=== PATIENT | female | born 1985 | race Caucasian/White ===

== ENCOUNTER 2020-05-08 07:03 | Inpatient (IN) | payer MEDICAID ==
[2020-05-08] MEDS ORDERED: RINGERS SOLUTION,LACTATED 1,000 ML IV ONE (07:36)
[2020-05-08] MEDS ORDERED: MISOPROSTOL 0.2 MG TABLET PV ONE (07:58)
[2020-05-08 08:24] LABS: ABSOLUTE EOSINOPHILS # (AUTO) 0.1 10^3/uL (0.0-0.6); ABSOLUTE LYMPHOCYTES (AUTO) 1.6 10^3/uL (0.5-4.7); ABSOLUTE MONOCYTES (AUTO) 0.4 10^3/uL (0.1-1.4); ABSOLUTE NEUT (AUTO) 3.8 10^3/uL (1.7-8.2); BASOPHILS % (AUTO) 0.6 % (0-2); EOSINOPHILS % (AUTO) 1.1 % (0-6); HEMATOCRIT 34.9 % (36.0-47.0); HEMOGLOBIN 12.5 g/dL (12.0-15.5); LYMPHOCYTES % (AUTO) 27.3 % (13-45); MEAN CORPUSCULAR VOLUME 92 fl (80-97); MONOCYTES % (AUTO) 7.1 % (3-13); PLATELET COUNT 179 10^3/uL (150-450); RED BLOOD COUNT 3.81 10^6/uL (3.72-5.28); SEGMENTED NEUTROPHILS % (AUTO) 63.9 % (42-78); TOTAL CELLS COUNTED % (AUTO) 100 %
[2020-05-08] MEDS: RINGERS SOLUTION,LACTATED 1,000 ML IV PRN ×2 (08:35→19:30)
[2020-05-08] MEDS ORDERED: MISOPROSTOL 0.2 MG TABLET ONE ×3 (08:51→19:49)
[2020-05-08 09:12] LABS: APPEARANCE,URINE SLIGHTLY-CLOUDY; BILIRUBIN,URINE NEGATIVE (NEGATIVE); GLUCOSE, URINE NEGATIVE (NEGATIVE); KETONES,URINE NEGATIVE (NEGATIVE); LEUKOCYTE ESTERASE,URINE NEGATIVE (NEGATIVE); NITRITE,URINE POSITIVE (NEGATIVE); PROTEIN,URINE NEGATIVE (NEGATIVE); URINE SPECIFIC GRAVITY 1.027; UROBILINOGEN,URINE NEGATIVE mg/dL (<2.0)
[2020-05-08 09:13] LABS: COLOR,URINE YELLOW
[2020-05-08 09:27] LABS: URINE AMPHETAMINES SCREEN NEGATIVE; URINE BARBITURATES SCREEN NEGATIVE; URINE BENZODIAZEPINES SCREEN NEGATIVE; URINE COCAINE SCREEN NEGATIVE; URINE MARIJUANA (THC) SCREEN NEGATIVE; URINE METHADONE SCREEN NEGATIVE; URINE PHENCYCLIDINE SCREEN NEGATIVE
[2020-05-08] MEDS ORDERED: CEFTRIAXONE INJ 1000 MG VIAL ONE (10:57)
[2020-05-08] MEDS ORDERED: OXYTOCIN/0.9 % SODIUM CHLORIDE 30 UNIT/500 ML RTUINJ ONE (10:57)
[2020-05-08] MEDS ORDERED: CEFTRIAXONE 1 GM/D5W RTU 1 GM/50 ML RTUPB IV ONE (11:00)
[2020-05-08] MEDS ORDERED: MISOPROSTOL 0.2 MG TABLET PO SCH (13:45)
[2020-05-08] MEDS ORDERED: PROMETHAZINE HCL INJ 25 MG/1 ML VIAL ONE (15:13)
[2020-05-08] MEDS ORDERED: NALBUPHINE HCL INJ 10 MG/1 ML AMPULE ONE ×2 (15:13→19:18)
[2020-05-08] MEDS ORDERED: PROMETHAZINE HCL INJ 25 MG/1 ML VIAL IV ONE ×2 (15:14→19:15)
[2020-05-08] MEDS ORDERED: NALBUPHINE HCL INJ 10 MG/1 ML AMPULE INJ ONE ×2 (15:14→19:15)
[2020-05-08] MEDS: MISOPROSTOL 0.2 MG TABLET PO SCH (19:53)
[2020-05-08] MEDS ORDERED: FAMOTIDINE 20 MG TABLET PO SCH (22:00)
[2020-05-08] MEDS ORDERED: MAGNESIUM HYDROXIDE SUSP 30 ML UDCUP PO PRN (22:03)
[2020-05-08] MEDS ORDERED: PROMETHAZINE HCL 25 MG SUPP.RECT PR PRN (22:03)
[2020-05-08] MEDS ORDERED: MEASLES,MUMPS&RUBELLA VACC/PF 0.5 ML VIAL SUBCUT PRN (22:03)
[2020-05-08] MEDS ORDERED: DIPHENHYDRAMINE HCL 25 MG CAPSULE PO PRN (22:03)
[2020-05-08] MEDS ORDERED: ACETAMINOPHEN WITH CODEINE #3 TABLET PO PRN (22:03)
[2020-05-08] MEDS ORDERED: PROMETHAZINE HCL 25 MG TABLET PO PRN (22:03)
[2020-05-08] MEDS ORDERED: DIPH/PERTUSS(ACELL)/TETANUS VAC/PF 0.5 ML SYR (>=10YO) IM PRN (22:03)
[2020-05-08] MEDS ORDERED: GLYCERIN/WITCH HAZEL LEAF 1 EACH MED..WIPE TP PRN (22:03)
[2020-05-08] MEDS ORDERED: ACETAMINOPHEN 650 MG SUPP.RECT PR PRN (22:03)
[2020-05-08] MEDS ORDERED: DIBUCAINE 1% OINTMENT 28 GM TP PRN (22:03)
[2020-05-08] MEDS ORDERED: PROMETHAZINE HCL INJ 25 MG/1 ML VIAL IV PRN (22:03)
[2020-05-08] MEDS ORDERED: PSEUDOEPHEDRINE HCL 30 MG TABLET PO PRN (22:03)
[2020-05-08] MEDS ORDERED: ZOLPIDEM TARTRATE 5 MG TABLET PO PRN (22:03)
[2020-05-08] MEDS ORDERED: OXYTOCIN/0.9 % SODIUM CHLORIDE 30 UNIT/500 ML RTUINJ IV PRN (22:03)
[2020-05-08] MEDS ORDERED: NA PHOS,M-B/NA PHOS,DI-BA (ADULT) 133 ML ENEMA PR PRN (22:03)
[2020-05-08] MEDS ORDERED: BENZOCAINE/MENTHOL AEROSOL SPRAY 56 ML TOP PRN (22:03)
[2020-05-09] MEDS ORDERED: IBUPROFEN 800 MG TABLET ONE (05:55)
[2020-05-09] MEDS ORDERED: IBUPROFEN 800 MG TABLET PO SCH (06:00)
[2020-05-09 07:43] LABS: HEMATOCRIT 30.1 % (36.0-47.0); MEAN CORPUSCULAR HEMOGLOBIN 33.4 pg (27.0-33.4); MEAN CORPUSCULAR HGB CONC 36.4 g/dL (32.0-36.0); MEAN CORPUSCULAR VOLUME 92 fl (80-97); PLATELET COUNT 161 10^3/uL (150-450); RED BLOOD COUNT 3.28 10^6/uL (3.72-5.28); RED CELL DISTRIBUTION WIDTH 13.7 % (11.5-14.0); WHITE BLOOD COUNT 9.2 10^3/uL (4.0-10.5)
[2020-05-09] MEDS: MISOPROSTOL 0.2 MG TABLET PO SCH (07:53)
--- NOTE | 2020-05-09 08:38 | PDOC DISCHARGE SUMMARY ---
Impression - Admit/DC Date/PCP Admission Date/Primary Care Provider: 05/08/20 07:03 ARMAAN AGUILAR MD Discharge Date: 05/09/20 - Discharge Diagnosis (1) demise before 20 weeks with retention of fetus Is this a current diagnosis for this admission?: Yes - Assessment Summary: The pt has a demise prior to 20 weeks and was induced to deliver the fetus . She was induced with cytotec and delivered the baby and placenta last night. Now she is doing well physically today. She has an appointment with a therapist Tuesday. She states that she is ready to go at this time. - Additional Information Resuscitation Status: Full Code Discharge Diet: As Tolerated Discharge Activity: Pelvic Rest Referrals: ARMAAN AGUILAR MD [Primary Care Provider] - Home Medications: No Home Medications 05/08/20 Additional Information: She will followup next week. History of Present Illiness History of Present Illness: JONEL NATION is a 34 year old female Physical Exam - Physical Exam Vital Signs: Intake & Output 05/08/20 05/09/20 05/10/20 06:59 06:59 06:59 Intake Total 1000 Balance 1000 Weight 58.9 kg Results Laboratory Results: WBC 9.2 10^3/uL (4.0-10.5) 05/09/20 07:15 RBC 3.28 10^6/uL (3.72-5.28) L 05/09/20 07:15 Hgb 11.0 g/dL (12.0-15.5) L 05/09/20 07:15 Hct 30.1 % (36.0-47.0) L 05/09/20 07:15 MCV 92 fl (80-97) 05/09/20 07:15 MCH 33.4 pg (27.0-33.4) 05/09/20 07:15 MCHC 36.4 g/dL (32.0-36.0) H 05/09/20 07:15 RDW 13.7 % (11.5-14.0) 05/09/20 07:15 Plt Count 161 10^3/uL (150-450) 05/09/20 07:15 Lymph % (Auto) 27.3 % (13-45) 05/08/20 07:30 [place] % (Auto) 7.1 % (3-13) 05/08/20 07:30 Eos % (Auto) 1.1 % (0-6) 05/08/20 07:30 Baso % (Auto) 0.6 % (0-2) 05/08/20 07:30 Absolute Neuts (auto) 3.8 10^3/uL (1.7-8.2) 05/08/20 07:30 Absolute Lymphs (auto) 1.6 10^3/uL (0.5-4.7) 05/08/20 07:30 Absolute Monos (auto) 0.4 10^3/uL (0.1-1.4) 05/08/20 07:30 Absolute Eos (auto) 0.1 10^3/uL (0.0-0.6) 05/08/20 07:30 Absolute Basos (auto) 0.0 10^3/uL (0.0-0.2) 05/08/20 07:30 Seg Neutrophils % 63.9 % (42-78) 05/08/20 07:30 Urine Color YELLOW 05/08/20 08:50 Urine Appearance SLIGHTLY-CLOUDY 05/08/20 08:50 Urine pH 5.0 (5.0-9.0) 05/08/20 08:50 Ur Specific [place] 1.027 05/08/20 08:50 Urine Protein NEGATIVE mg/dL (NEGATIVE) 05/08/20 08:50 Urine Glucose (UA) NEGATIVE mg/dL (NEGATIVE) 05/08/20 08:50 Urine Ketones NEGATIVE mg/dL (NEGATIVE) 05/08/20 08:50 Urine Blood NEGATIVE (NEGATIVE) 05/08/20 08:50 Urine Nitrite POSITIVE (NEGATIVE) H 05/08/20 08:50 Urine Bilirubin NEGATIVE (NEGATIVE) 05/08/20 08:50 Urine Urobilinogen NEGATIVE mg/dL (<2.0) 05/08/20 08:50 Ur Leukocyte Esterase NEGATIVE (NEGATIVE) 05/08/20 08:50 Urine WBC (Auto) 6 /HPF 05/08/20 08:50 Urine RBC (Auto) 2 /HPF 05/08/20 08:50 Urine Bacteria (Auto) 2+ /HPF 05/08/20 08:50 Squamous Epi Cells Auto 5 /HPF 05/08/20 08:50 Urine Mucus (Auto) MANY /LPF 05/08/20 08:50 Urine Ascorbic Acid NEGATIVE (NEGATIVE) 05/08/20 08:50 Urine Opiates Screen NEGATIVE 05/08/20 08:50 Urine Methadone Screen NEGATIVE 05/08/20 08:50 Ur Barbiturates Screen NEGATIVE 05/08/20 08:50 Ur Phencyclidine Scrn NEGATIVE 05/08/20 08:50 Ur Amphetamines Screen NEGATIVE 05/08/20 08:50 U Benzodiazepines Scrn NEGATIVE 05/08/20 08:50 Urine Cocaine Screen NEGATIVE 05/08/20 08:50 U Marijuana (THC) Screen NEGATIVE 05/08/20 08:50 RPR NONREACTIVE (NONREACTIVE) 05/08/20 07:30 Rubella IgG Antibody 53.40 IU/mL 05/08/20 07:40 Rubella IgG Ab Interp POSITIVE 05/08/20 07:40 Blood Type A POSITIVE 05/08/20 07:30 Antibody Screen NEGATIVE 05/08/20 07:30 Stroke Is this a Stroke Patient?: No Acute Heart Failure - Is this a Heart Failure Patient?: No
[2020-05-09 08:50] LABS: HSV-I IGG AB 1.44 index (0.00-0.90); TOXOPLASMA GONDII IGG AB <3.0 IU/mL (0.0-7.1); TOXOPLASMA GONDII IGM AB <3.0 AU/mL (0.0-7.9)
[2020-05-09 08:51] LABS: CYTOMEGALOVIRUS IGG AB <0.60 U/mL (0.00-0.59); CYTOMEGALOVIRUS IGM AB <30.0 AU/mL (0.0-29.9)
[2020-05-09] MEDS ORDERED: SENNOSIDES/DOCUSATE 8.6-50 MG 1 EACH TABLET PO SCH (10:00)
[2020-05-09] MEDS ORDERED: DOCUSATE SODIUM 100 MG CAPSULE PO SCH (10:00)
[2020-05-09] MEDS ORDERED: PRENATAL VITAMIN W DHA CAPSULE PO SCH (10:00)
[2020-05-09] MEDS ORDERED: FERROUS SULFATE 325 MG TABLET PO SCH (10:00)
[2020-05-12 07:03] LABS: ANTICARDIOLIPIN IGA AB <9 APL U/mL (0-11); ANTICARDIOLIPIN IGG AB <9 GPL U/mL (0-14); ANTICARDIOLIPIN IGM AB <9 MPL U/mL (0-12)
== END 2020-05-09 09:01 | disposition home or self-care (01) | DRG 779 ==
LOC: LR 07:03
PROVIDERS: ADMIT Obstetrics & Gynecology Gynecology; ATTEND Obstetrics & Gynecology Gynecology
PROC: 3E0P7VZ Introduction of Hormone into Female Reproductive, Via Natural or Artificial Opening (ICD-10-PCS; principal; 2020-05-08)
DX: O02.1 Missed abortion (principal); Z91.040 Latex allergy status; Z88.6 Allergy status to analgesic agent
CPT/HCPCS: 36415; 80307; 81001; 85025; 85027; 86147; 86592; 86644; 86695; 86696; 86762; 86777; 86778; 86850; 86900; 86901; 88307; J0696; J2300; J2550; J2590

== ENCOUNTER 2020-08-14 09:20 | Emergency (ER) | payer MEDICAID ==
[2020-08-14] MEDS ORDERED: ONDANSETRON 4 MG TAB.RAPDIS PO ONE (09:51)
--- NOTE | 2020-08-14 09:52 | ER Document Report ---
ED GI/ - General Chief Complaint: Nausea/Vomiting Stated Complaint: NAUSEA,VOMITING Time Seen by Provider: 08/14/20 09:44 Notes: CHIEF COMPLAINT: Nausea vomiting HPI: 34-year-old female presenting with nausea vomiting. Became nauseated last night threw up 2 times, has had dry heaving this morning. No abdominal pain. No diarrhea. No fever. Patient states that she is not concerned about COVID. She would like a test although she states she took 1 at home this morning and it was negative ROS: See HPI - all other systems were reviewed and are otherwise negative Constitutional: no fever Eyes: no drainage, no blurred vision ENT: no runny nose, no sore throat Cardiovascular: no chest pain Resp: no SOB, no cough GI: + vomiting, no diarrhea, no abdominal pain : no dysuria Integumentary: no rash Allergy: no hives Musculoskeletal: no extremity pain or swelling Neurological: no numbness/tingling, no weakness MEDICATIONS: I agree with the patient medications as charted by the RN. ALLERGIES: I agree with the allergies as charted by the RN. PAST MEDICAL HISTORY/PAST SURGICAL HISTORY: Reviewed and agree as charted by RN. SOCIAL HISTORY: Reviewed and agree as charted by RN. FAMILY HISTORY: No significant familial comorbid conditions directly related to patient complaint EXAM: Reviewed vital signs as charted by RN. CONSTITUTIONAL: Alert and oriented and responds appropriately to questions. Well-appearing; well-nourished HEAD: Normocephalic; atraumatic EYES: PERRL; Conjunctivae clear, sclerae non-icteric ENT: normal nose; no rhinorrhea; moist mucous membranes; pharynx without lesions noted, no uvula edema or deviation, no tonsillar hypertrophy, phonation normal NECK: Supple without meningismus; non-tender; no cervical lymphadenopathy, no masses CARD: RRR; no murmurs, no clicks, no rubs, no gallops; symmetric distal pulses RESP: Normal chest excursion without splinting or tachypnea; breath sounds clear and equal bilaterally; no wheezes, no rhonchi, no rales, pulse oximetry 98% on room air not hypoxic ABD/GI: Normal bowel sounds; non-distended; soft, non-tender, no rebound, no guarding; no palpable organomegaly or masses. BACK: The back appears normal and is non-tender to palpation, there is no CVA tenderness EXT: Normal ROM in all joints; non-tender to palpation; no cyanosis, no effusions, no edema SKIN: Normal color for age and race; warm; dry; good turgor; no acute lesions noted NEURO: Moves all extremities equally; Motor and sensory function intact PSYCH: The patient's mood and manner are appropriate. Grooming and personal hygiene are appropriate. MDM: 34-year-old female with nausea vomiting complaint. Does not want [place] test, states she is normally at home and does not believe she was exposed to anyone. Has no abdominal pain on exam. Will treat nausea, obtain urine urine test. - Related Data Allergies/Adverse Reactions: latex Allergy (Verified 05/08/20 07:15) morphine Allergy (Verified 05/08/20 07:15) Past Medical History - Social History Smoking Status: Never Smoker Frequency of alcohol use: None Drug Abuse: None Family History: Reviewed & Not Pertinent Physical Exam - Vital signs Vitals: Temp Pulse Resp BP Pulse Ox 98.6 F 94 16 113/68 100 08/14/20 09:27 08/14/20 09:27 08/14/20 09:27 08/14/20 09:27 08/14/20 09:27 Course - Re-evaluation Re-evalutation: 08/14/20 11:30 Tolerating oral fluids, urine does not show evidence of infection. She has declined COVID testing. Will discharge on Zofran follow-up PCP - Vital Signs Vital signs: Temp Pulse Resp BP Pulse Ox 98.6 F 94 16 113/68 100 08/14/20 09:33 08/14/20 09:27 08/14/20 09:27 08/14/20 09:27 08/14/20 09:27 Discharge - Discharge Clinical Impression: Vomiting Qualifiers: Vomiting type: unspecified Vomiting Intractability: non-intractable Nausea presence: with nausea Qualified Code(s): R11.2 - Nausea with vomiting, unspecified Condition: Stable Disposition: HOME, SELF-CARE Additional Instructions: Take Zofran for any recurrent nausea or vomiting hydrate well at home. Urinalysis did not show evidence of infection. Not today. Return for any onset of high fever or abdominal pain. Follow-up with your primary care provider for reevaluation call for appointment Prescriptions: Ondansetron [Zofran Odt 4 mg Tablet] 1 - 2 tab PO Q4H PRN #15 tab.rapdis PRN Reason: For Nausea/Vomiting
[2020-08-14 10:18] LABS: APPEARANCE,URINE CLEAR; BILIRUBIN,URINE NEGATIVE (NEGATIVE); COLOR,URINE YELLOW; GLUCOSE, URINE NEGATIVE (NEGATIVE); KETONES,URINE NEGATIVE (NEGATIVE); LEUKOCYTE ESTERASE,URINE NEGATIVE (NEGATIVE); NITRITE,URINE NEGATIVE (NEGATIVE); PROTEIN,URINE NEGATIVE (NEGATIVE); URINE SPECIFIC GRAVITY 1.015; UROBILINOGEN,URINE NEGATIVE mg/dL (<2.0)
[2020-08-14 12:33] VITALS: BP 118/74
== END 2020-08-14 12:32 | disposition home or self-care (01) ==
LOC: ER 09:20
DX: R11.2 Nausea with vomiting, unspecified (principal); Z91.040 Latex allergy status; Z32.02 Encounter for pregnancy test, result negative; Z88.6 Allergy status to analgesic agent; Z88.5 Allergy status to narcotic agent
CPT/HCPCS: 99283; 81025; 81001; S0119

== ENCOUNTER 2020-10-02 07:20 | Emergency (ER) | payer MEDICAID ==
[2020-10-02 08:14] LABS: APPEARANCE,URINE SLIGHTLY-CLOUDY; BILIRUBIN,URINE NEGATIVE (NEGATIVE); COLOR,URINE YELLOW; GLUCOSE, URINE NEGATIVE (NEGATIVE); KETONES,URINE NEGATIVE (NEGATIVE); LEUKOCYTE ESTERASE,URINE LARGE (NEGATIVE); NITRITE,URINE NEGATIVE (NEGATIVE); PROTEIN,URINE 100 mg/dL (NEGATIVE); URINE SPECIFIC GRAVITY 1.024; UROBILINOGEN,URINE NEGATIVE mg/dL (<2.0)
--- NOTE | 2020-10-02 08:37 | ER Document Report ---
ED General - General Chief Complaint: Pain With Urination Stated Complaint: URINARY PROBLEMS Time Seen by Provider: 10/02/20 08:10 Primary Care Provider: AMANDA HAQUE MD [ACTIVE STAFF] - Follow up in 1 week - [facility] Notes: 34-year-old female, G4, P2, stillborn 1, to the emergency department with complaints of burning with urination and pelvic cramping for the past 2 days. She states that she is approximately 6 weeks . She has not had an ultrasound with this . She denies any vaginal bleeding. She denies any fevers, chills, nausea, vomiting. She states that she is not had any flank pain. She denies any chest pain. She states that her last ended in a stillborn. This was in May 2020. She states that currently she is being evaluated at the health department but then will transfer care over to Dr. Haque at [facility]. - Related Data Allergies/Adverse Reactions: latex Allergy (Verified 10/02/20 07:27) morphine Allergy (Verified 10/02/20 07:) Past Medical History - General Information source: Patient - Social History Smoking Status: Never Smoker Chew tobacco use (# tins/day): No Frequency of alcohol use: None Drug Abuse: None Family History: Reviewed & Not Pertinent Review of Systems - Review of Systems Constitutional: denies: Chills, Fever EENT: No symptoms reported Cardiovascular: denies: Chest pain, Palpitations, Dizziness, Lightheaded Respiratory: denies: Cough, Short of breath Gastrointestinal: Abdominal pain. denies: Diarrhea, Nausea, Vomiting Genitourinary: Burning, Dysuria Musculoskeletal: No symptoms reported Skin: No symptoms reported Hematologic/Lymphatic: No symptoms reported Neurological/Psychological: No symptoms reported -: Yes All other systems reviewed and negative Physical Exam - Vital signs Vitals: Temp Pulse Resp BP Pulse Ox 98.1 F 88 16 104/56 L 100 10/02/20 07:25 10/02/20 07:25 10/02/20 07:25 10/02/20 07:25 10/02/20 07:25 Interpretation: Normal Notes: PHYSICAL EXAMINATION: GENERAL: Well-appearing, well-nourished and in no acute distress. HEAD: Atraumatic, normocephalic. EYES: Pupils equal round and reactive to light, extraocular movements intact, sclera anicteric NECK: Normal range of motion, supple without lymphadenopathy LUNGS: Breath sounds clear to auscultation bilaterally and equal. No wheezes rales or rhonchi. HEART: Regular rate and rhythm without murmurs ABDOMEN: Soft, nontender, normoactive bowel sounds. No guarding, no rebound. No masses appreciated. No CVA tenderness NEUROLOGICAL: No focal neurological deficits. Moves all extremities spontaneously and on command. PSYCH: Normal mood, normal affect. SKIN: Warm, Dry, normal turgor, no rashes or lesions noted. Course - Re-evaluation Re-evalutation: 10/02/20 11:15 Impression: UTI during , pelvic cramping with ultrasound illustrating a 6-week gestation. We will have her follow-up with the health department for further monitoring. She is to return if she has any vaginal bleeding or worsening pain. She is to take all antibiotics as prescribed. Patient agrees with plan - Vital Signs Vital signs: Temp Pulse Resp BP Pulse Ox 98.1 F 88 16 104/56 L 100 10/02/20 07:25 10/02/20 07:25 10/02/20 07:25 10/02/20 07:25 10/02/20 07:25 - Laboratory Result Diagrams: 10/02/20 09:53 Laboratory results interpreted by me: 10/02/20 10/02/20 07:45 09:53 Beta HCG, Quant 19545.00 H Urine Protein 100 H Urine Blood SMALL H Ur Leukocyte Esterase LARGE H Urine HCG, Qual POSITIVE H - Diagnostic Test Radiology reviewed: Image reviewed, Reports reviewed Discharge - Discharge Clinical Impression: 6 weeks gestation of UTI (urinary tract infection) Qualifiers: Urinary tract infection type: acute cystitis Hematuria presence: without hematuria Qualified Code(s): N30.00 - Acute cystitis without hematuria Condition: Stable Disposition: HOME, SELF-CARE Instructions: ([facility]), Urinary Tract Infection ([facility]) Additional Instructions: Please follow-up outpatient with the health department and later Dr. Haque for further care of your . Please call the health department on Tuesday they can have your hormone trended. Your hormone today was [id number],[phone]. You had an ultrasound that showed a 6-week gestation. Please return if you have worsening symptoms, intractable vomiting, fever, flank pain, vaginal bleeding. Prescriptions: Cephalexin Monohydrate [Keflex 500 mg Capsule] 500 mg PO BID 7 Days #14 capsule Referrals: AMANDA HAQUE MD [ACTIVE STAFF] - Follow up in 1 week
[2020-10-02] MEDS ORDERED: CEFTRIAXONE 1 GM/D5W RTU 1 GM/50 ML RTUPB IV ONE (08:44)
[2020-10-02 10:03] LABS: ABSOLUTE EOSINOPHILS # (AUTO) 0.1 10^3/uL (0.0-0.6); ABSOLUTE LYMPHOCYTES (AUTO) 1.1 10^3/uL (0.5-4.7); ABSOLUTE MONOCYTES (AUTO) 0.3 10^3/uL (0.1-1.4); BASOPHILS % (AUTO) 0.6 % (0-2); EOSINOPHILS % (AUTO) 1.7 % (0-6); HEMATOCRIT 36.9 % (36.0-47.0); LYMPHOCYTES % (AUTO) 23.7 % (13-45); MEAN CORPUSCULAR HEMOGLOBIN 31.7 pg (27.0-33.4); MEAN CORPUSCULAR HGB CONC 35.2 g/dL (32.0-36.0); MEAN CORPUSCULAR VOLUME 90 fl (80-97); MONOCYTES % (AUTO) 7.2 % (3-13); PLATELET COUNT 189 10^3/uL (150-450); SEGMENTED NEUTROPHILS % (AUTO) 66.8 % (42-78); TOTAL CELLS COUNTED % (AUTO) 100 %; WHITE BLOOD COUNT 4.5 10^3/uL (4.0-10.5)
--- NOTE | 2020-10-02 10:03 | RADIOLOGY REPORT (SQ) ---
EXAM DESCRIPTION: U/S OB TRANSVAGINAL W/O DOP IMAGES COMPLETED DATE/TIME: 10/02/2020 9:50 am REASON FOR STUDY: pelvic cramping, eval ectopic COMPARISON: None. TECHNIQUE: Endovaginal static and realtime grayscale images acquired of the pelvis. Additional selec dorothy spectral and color Doppler images recorded. All images stored on PACs. bHCG: Not available CLINICAL DATES: Last menses 08/22/2020 LIMITATIONS: None FINDINGS: FETUS: Single Living intrauterine . ULTRASOUND EGA: 6 weeks 0 days ULTRASOUND MAGEN: 05/28/2021 EFW: Not applicable less than 20 weeks. CRL: 3.3 mm FHR: 116 beats per minute. SURVEY: Too early to assess. AMNIOTIC FLUID: Adequate amount. PLACENTA: Not yet developed due to early gestation. SUBCHORIONIC BLEED: Yes SIZE OF BLEED: 12 mm subchorionic hemorrhage UTERUS: No masses. No anomalies. CERVICAL LENGTH: 3.5 cm in length Closed. RIGHT ADNEXA: Normal ovary with normal vascular flow. Right ovary 2.6 x 2.1 x 2 cm. No adnexal free fluid.No adnexal masses. LEFT ADNEXA: Normal ovary with normal vascular flow. Left ovary 3.1 x 1.9 x 2.7 cm. No adnexal free fluid.No adnexal masses. FREE FLUID: Small amount of pelvic cul-de-sac free fluid OTHER: No other significant finding. IMPRESSION: LIVING INTRAUTERINE . EGA 6 weeks 0 days Small subchorionic hemorrhage Trimester of : First trimester - 0 to 13 weeks. TECHNICAL DOCUMENTATION: JOB ID: [id number] [employer] All Rights Reserved rev Reading location - IP/workstation name: [id number]
[2020-10-02 11:40] VITALS: BP 122/63
== END 2020-10-02 11:41 | disposition home or self-care (01) ==
LOC: ER 07:20
DX: O23.11 Infections of bladder in pregnancy, first trimester (principal); N30.00 Acute cystitis without hematuria; Z3A.01 Less than 8 weeks gestation of pregnancy; Z88.6 Allergy status to analgesic agent; Z91.040 Latex allergy status
CPT/HCPCS: 99285; 96365; 36415; 84702; 85025; 81025; 81001; 76817; J0696